=== PATIENT | male | born 1965 | race Caucasian/White ===

== ENCOUNTER → 2017-10-24 | Outpatient (CLI) | payer OTHER ==
[~2017-10-24] MED LIST: BACTRIM,SEPT1 TABLET PO; CLINDAMYCIN HC300 MG PO; FLEXERIL10 MG PO; KEFLEX500 MG PO; MOTRIN600 MG PO; PERCOCET 5/31 TABLET PO; ULTRACET1 TABLET PO
== END | disposition home or self-care (01) ==
LOC: RES 09:00
DX: R07.9 Chest pain, unspecified (principal); J44.9 Chronic obstructive pulmonary disease, unspecified
CPT/HCPCS: 94060; 94726; 94729